=== PATIENT | male | born 1980 ===

== ENCOUNTER 2020-05-22 08:28 | Outpatient (CLI) | payer OTHER, SELFPAY ==
--- NOTE | ~2020-05-22 | XR_ITS ---
EXAMINATION: XR abdomen obstructive series DATE: 05/22/2020 09:13 INDICATION: Distended abdomen. TECHNIQUE: Upright and supine views of the abdomen were obtained. COMPARISON: None. FINDINGS: There are no dilated loops of bowel. There is a small volume of stool in the colon. There i s liquid stool in the colon suggestive of diarrhea. No free intraperitoneal gas. A calcified left gena g nodule is consistent with old granulomatous disease. IMPRESSION: 1. Nonobstructive bowel gas pattern. Reviewed, dictated and finalized at location A.
== END 2020-05-22 08:29 | disposition home or self-care (01) ==
DX: R19.00 Intra-abdominal and pelvic swelling, mass and lump, unspecified site (principal)
CPT/HCPCS: 74019

== ENCOUNTER 2023-07-20 11:54 | Outpatient (CLI) | payer BC, SELFPAY ==
--- NOTE | ~2023-07-20 | XR_ITS ---
[id number] 07/20/2023 12:09 Indication: Neck pain Procedure: 2 views of the cervical spine Comparison: No prior studies for comparison. Findings: Vertebral body and disc heights are preserved. No fracture, subluxation or dislocation. No prevertebral soft tissue swelling. Lung apices are normal. Odontoid process is not well visualized. Impression: 1: No significant abnormality of the cervical spine. Reviewed, dictated and finalized at location B. Impression: 1: No significant abnormality of the cervical spine.
== END 2023-07-20 11:55 | disposition home or self-care (01) ==
LOC: ANHIMG 11:58
DX: M54.2 Cervicalgia (principal)
CPT/HCPCS: 72040